=== PATIENT | male | born 1975 | race African-American/Black ===

== ENCOUNTER 2017-06-12 14:18 | Emergency (ER) | payer BC ==
[~2017-06-12] VITALS: Ht 182.9 cm; Wt 119.8 kg
[2017-06-12 15:39] LABS: HEMATOCRIT 45.8 % (38.0-50.0); MCHC 30.8 G/DL (30.0-36.0); MCV 71.3 FL (86-99); MEAN PLAT.VOLUME 10.8 uM^3 (9.0-12.4); NRBC (%) 0.3 /100 WBC (0-0); PLATELET COUNT 213 K/uL (156-360); RBC DIS.WIDTH-CV 16.8 % (11.8-14.6); RBC DIS.WIDTH-SD 38.1 % (39-53); RED BLOOD COUNT 6.42 M/uL (4.00-5.50); WHITE BLOOD COUNT 7.3 K/uL (4.1-10.2)
[2017-06-12 15:44] LABS: CHLORIDE 105 mEq/L (99-109); POTASSIUM 3.9 mEq/L (3.7-5.4); SODIUM 141 mEq/L (136-147)
[2017-06-12 15:45] LABS: GLUCOSE 111 mg/dL (70-99)
[2017-06-12 15:47] LABS: ANION GAP 12 MEQ/L (2-14)
[2017-06-12 15:50] LABS: UREA NITROGEN (BUN) 11 mg/dL (9-23)
[2017-06-12 15:52] LABS: GFR ESTIMATE (CALCULATED) > 59 mL/min/
[2017-06-12 15:54] LABS: TROP-I INTERPRETATION NEGATIVE; TROPONIN-I < 0.01 ng/mL (0.0-0.30)
[2017-06-12] MEDS ORDERED: AMLODIPINE BESYL5 MG PO (17:44)
[2017-06-12] MEDS ORDERED: MOTRIN800 MG PO (22:15)
[2017-06-12] MEDS ORDERED: VENTOLIN HFA18 GM IH (22:15)
[2017-06-12 22:40] VITALS: BP 145/81
== END 2017-06-12 22:42 | disposition home or self-care (01) ==
LOC: EME 14:18
DX: S29.011A Strain of muscle and tendon of front wall of thorax, initial encounter (principal); R07.81 Pleurodynia; J98.01 Acute bronchospasm; X58.XXXA Exposure to other specified factors, initial encounter; I10 Essential (primary) hypertension; F17.200 Nicotine dependence, unspecified, uncomplicated; Z71.6 Tobacco abuse counseling
CPT/HCPCS: 71020; 80048; 84484; 85027; 93005; 94640; 99281; 99285